=== PATIENT | male | born 1995 | race African-American/Black ===

== ENCOUNTER 2022-05-11 15:08 | Emergency (ER) | payer BC, SELFPAY ==
[2022-05-11] MEDS ORDERED: Azithromycin 250 MG TAB ONE (15:55)
[2022-05-11] MEDS ORDERED: cefTRIAXone\\ROCEPHIN 500 MG VIAL ONE (15:55)
[2022-05-11] MEDS ORDERED: Sterile Water 10 ML ONE (15:55)
[2022-05-12 16:54] LABS: Chlam.trachomatis by PCR,Urine Not Detected (NotDetected)
== END 2022-05-11 16:24 | disposition home or self-care (01) ==
LOC: BURERS 15:08
DX: A54.01 Gonococcal cystitis and urethritis, unspecified (principal); B35.3 Tinea pedis; F17.290 Nicotine dependence, other tobacco product, uncomplicated
CPT/HCPCS: 87491; 87591; 96372; 99283; J0696